=== PATIENT | female | born 1975 | race Two or more races ===

== ENCOUNTER 2017-06-17 13:47 | Emergency (ER) | payer OTHER ==
[~2017-06-17] VITALS: Ht 167.6 cm; Wt 77.1 kg
[2017-06-17 14:23] VITALS: BP 110/69
[2017-06-17] MEDS ORDERED: DIPHTH,PERTUSS(ACELL),TET TOX 0.5 ML DISP.SYRIN. VAX IM ONE (14:45)
--- NOTE | 2017-06-17 14:45 | PHYS DOC ---
Past Medical History Past Medical History: Asthma, High Cholesterol, Hypertension, Migraines Past Surgical History: Other Additional Past Surgical Histo: R foot Alcohol Use: None Drug Use: None Adult General Chief Complaint Chief Complaint: FOOT INJURY PAIN HPI HPI Patient is a 41 year old female presents to the emergency department with family member who is interpreting for the patient states that she fell down 4-5 steps yesterday she is complaining of back pain and discomfort from the cervical spinal fluid down to the lumbar spine. She is complaining of an abrasion on her right second finger patient is also complaining of right foot pain Review of Systems Review of Systems Constitutional: Denies fever or chills [] Eyes: Denies change in visual acuity, redness, or eye pain [] HENT: Denies nasal congestion or sore throat [] Respiratory: Denies cough or shortness of breath [] Cardiovascular: No additional information not addressed in HPI [] GI: Denies abdominal pain, nausea, vomiting, bloody stools or diarrhea [] : Denies dysuria or hematuria [] Musculoskeletal: Cervical spine, thoracic spine or lumbar spine, and right foot pain Integument: Denies rash or skin lesions [] Neurologic: Denies headache, focal weakness or sensory changes [] Endocrine: Denies polyuria or polydipsia [] Current Medications Current Medications Current Medications Medications (Trade) Dose Ordered Sig/Dominique Start Time Stop Time Status Last Admin Dose Admin Diphtheria/ Tetanus/Acell Pertussis (Boostrix) 0.5 ml ONCE ONCE 06/17/17 14:45 06/17/17 14:48 DC 06/17/17 15:26 0.5 ML Ibuprofen (Motrin) 800 mg 1X ONCE 06/17/17 15:00 06/17/17 15:01 DC 06/17/17 15:23 800 MG Allergies Allergies Allergies Coded Allergies Type Severity Reaction Last Updated Verified No Known Drug Allergies 06/17/17 No Physical Exam Physical Exam Constitutional: Well developed, well nourished, no acute distress, non-toxic appearance. [] HENT: Normocephalic, atraumatic, bilateral external ears normal, oropharynx moist, no oral exudates, nose normal. [] Eyes: PERRLA, EOMI, conjunctiva normal, no discharge. [] Neck: Normal range of motion, no tenderness, supple, no stridor. [] Cardiovascular:Heart rate regular rhythm, no murmur [] Lungs & Thorax: Bilateral breath sounds clear to auscultation [] Skin: Warm, dry, no erythema, no rash. [] Back: Cervical spine, thoracic spine and lumbar spine tenderness, no deformities , no step-offs no crepitus noted. Extremities: Right foot tenderness, no cyanosis, no clubbing, ROM intact, no edema. Patient appears to have swelling in the right foot no discoloration noted. Peripheral pulses 2+ cap refill brisk less than 2 seconds. Patient was noted to ambulate with a good steady gait into the emergency department. Neurologic: Alert and oriented X 3, normal motor function, normal sensory function, no focal deficits noted. [] Psychologic: Affect normal, judgement normal, mood normal. [] Current Patient Data Vital Signs Vital Signs Date Time Temp Pulse Resp B/P (MAP) Pulse Ox O2 Delivery O2 Flow Rate FiO2 06/17/17 14:23 97.9 80 18 95 Room Air 97.9 EKG EKG [] Radiology/Procedures Radiology/Procedures [][place] [id number] IMAGING REPORT Signed PATIENT: CATHY WHITLOCK ACCOUNT: [id number] : 1975 LOCATION: ER AGE: 41 SEX: F EXAM STATUS: REG ER ORD. PHYSICIAN: OLIVIA MARKS APRN REASON: fall down 4 steps yesterday PROCEDURE: CERVICAL SPINE 2-3V Indication fall, pain. C1-C7 are identified. AP and lateral views of the cervical spine were obtained as well as a odontoid views. Vertebral height alignment and disc spaces appear normal. No fracture or acute bony finding is seen. The prevertebral soft tissues appear normal. IMPRESSION: Normal plain films of the cervical spine DICTATED and SIGNED BY: MINGO ORTIZ MD DATE: 06/17/17 1522 CC: OLIVIA MARKS APRN; DEEPIKA HORNE MD ~ [address] [address] IMAGING REPORT Signed PATIENT: CATHY WHITLOCK ACCOUNT: [id number] : 1975 LOCATION: ER AGE: 41 SEX: F EXAM STATUS: REG ER ORD. PHYSICIAN: OLIVIA MARKS APRN REASON: fall down 4 steps yesterday PROCEDURE: LUMBAR SPINE 2-3V Indication fall yesterday. Pain. AP and lateral views of the lumbar spine were obtained as well as a coned view targeted to the lumbosacral junction. No fracture is seen. A small osteophyte is noted off the anterior superior aspect of the L4 vertebral body. There is a probable pars defect at L5. IMPRESSION: No fracture seen. DICTATED and SIGNED BY: MINGO ORTIZ MD DATE: 06/17/17 1520 CC: OLIVIA MARKS APRN; DEEPIKA HORNE MD ~ [facility] [address] [place] [address] IMAGING REPORT Signed PATIENT: CATHY WHITLOCK ACCOUNT: [id number] : 1975 LOCATION: ER AGE: 41 SEX: F EXAM STATUS: REG ER ORD. PHYSICIAN: OLIVIA MARKS APRN REASON: fall down 4 steps yesterday PROCEDURE: THORACIC SPINE 3V Indication fall, pain. AP and lateral views of the thoracic spine were obtained as well as a swimmer's view. No bony abnormality is seen DICTATED and SIGNED BY: MINGO ORTIZ MD DATE: 06/17/17 152 CC: OLIVIA MARKS APRN; DEEPIKA HORNE MD ~ [facility] [address] [place] [address] IMAGING REPORT Signed PATIENT: CATHY WHITLOCK ACCOUNT: [id number] : 1975 LOCATION: ER AGE: 41 SEX: F EXAM STATUS: REG ER ORD. PHYSICIAN: OLIVIA AMRKS APRN REASON: right foot injury and pain PROCEDURE: FOOT RIGHT 3V Indication fall. Pain. AP oblique and lateral views of the right foot were obtained. There is some soft tissue swelling. Only seen on the lateral view is perhaps a slight cortical irregularity involving one of the metatarsals proximally or conceivably one of the cuneiform bones. The finding is not certain. No additional bony finding is seen DICTATED and SIGNED BY: MINGO ORTIZ MD DATE: 06/17/17 1447 CC: OLIVIA MARKS APRN; DEEPIKA HORNE MD ~ Course & Med Decision Making Course & Med Decision Making Pertinent Labs and Imaging studies reviewed. (See chart for details) X-rays negative. Patient will be discharged home in stable condition. Signs and symptoms to return to the emergency department has been provided. Patient will be placed in cortez wrap and post op shoe with recommendations to followup with orthopedic in 5-7 days. Ice packs on 20 minutes and off 20 minutes several times a day. Elevation as much as possible. Patient was encouraged to use Tylenol or Ibuprofen for pain and discomfort. All questions and concerns have been answered. All information was provided to the reprographics technician. [] Dragon Disclaimer Dragon Disclaimer This electronic medical record was generated, in whole or in part, using a voice recognition dictation system. Departure Departure Impression: Primary Impression: Fall Additional Impressions: Foot pain, right Back pain Disposition: 01 HOME, SELF-CARE Condition: STABLE Referrals: DEEPIKA HORNE MD (PCP) REBECCA BAILEY II, MD Patient Instructions: Back Pain, Adult, [id number], Fall Prevention and Home Safety, [id number], Foot Sprain-Brief Additional Instructions: X-rays negative for any bony abnormalities Tylenol or Ibuprofen for pain and discomfort Ice packs on 20 minutes and off 20 minutes several times a day Elevation as much as possible Wear the cortez wrap and the post op shoe for the next week Followup with orthopedic in 1 week Return to emergency department as needed for signs and symptoms that become worse. Problem Qualifiers Primary Impression: Fall Encounter type: initial encounter Qualified Codes: W19.XXXA - Unspecified fall, initial encounter Additional Impressions: Back pain Back pain location: back pain in unspecified location Chronicity: unspecified Back pain laterality: unspecified Qualified Codes: M54.9 - Dorsalgia, unspecified OLIVIA MARKS APRN Jun 17, 2017 14:45
--- NOTE | 2017-06-17 14:54 | RAD ---
Indication fall. Pain. AP oblique and lateral views of the right foot were obtained. There is some soft tissue swelling. Only seen on the lateral view is perhaps a slight cortical irregularity involving one of the metatarsals proximally or conceivably one of the cuneiform bones. The finding is not certain. No additional bony finding is seen
[2017-06-17] MEDS ORDERED: IBUPROFEN 800 MG TABLET. PO ONE (15:00)
--- NOTE | 2017-06-17 15:24 | RAD ---
Indication fall yesterday. Pain. AP and lateral views of the lumbar spine were obtained as well as a coned view targeted to the lumbosacral junction. No fracture is seen. A small osteophyte is noted off the anterior superior aspect of the L4 vertebral body. There is a probable pars defect at L5. IMPRESSION: No fracture seen.
--- NOTE | 2017-06-17 15:26 | RAD ---
Indication fall, pain. C1-C7 are identified. AP and lateral views of the cervical spine were obtained as well as a odontoid views. Vertebral height alignment and disc spaces appear normal. No fracture or acute bony finding is seen. The prevertebral soft tissues appear normal. IMPRESSION: Normal plain films of the cervical spine
--- NOTE | 2017-06-17 15:28 | RAD ---
Indication fall, pain. AP and lateral views of the thoracic spine were obtained as well as a swimmer's view. No bony abnormality is seen
== END 2017-06-17 15:55 | disposition home or self-care (01) ==
LOC: ER 13:47
DX: M79.671 Pain in right foot (principal); M54.5 Low back pain; M54.2 Cervicalgia; E78.00 Pure hypercholesterolemia, unspecified; I10 Essential (primary) hypertension; G43.909 Migraine, unspecified, not intractable, without status migrainosus; J45.909 Unspecified asthma, uncomplicated; Z98.890 Other specified postprocedural states; W10.9XXA Fall (on) (from) unspecified stairs and steps, initial encounter; Y93.89 Activity, other specified; Y99.8 Other external cause status; Y92.89 Other specified places as the place of occurrence of the external cause
CPT/HCPCS: 72040; 72072; 72100; 73630; 90471; 90715; 99284-25